=== PATIENT | female | born 1995 | race Caucasian/White ===

== ENCOUNTER 2021-09-22 17:21 | Emergency (ER) | payer SELFPAY ==
--- NOTE | 2021-09-22 18:11 | ED Lower Extremity ---
General Stated Complaint: KNEE PAIN Source: patient Exam Limitations: no limitations (JOAN HERRERA) History of Present Illness Date Seen by Provider: Sep 22, 2021 Time Seen by Provider: 18:09 Initial Comments Patient is a 26-year-old female presents ED with right knee pain. Knee pain started 2 weeks ago. She was putting on catcher gear on a kid. She felt a sharp pain in her knee. This occurred suddenly. She has been having popping sensation with her right knee since. She reports swelling of the right calf, thigh from this injury. She went to [facility] and was prescribed me loxicam and Voltaren without much improvement. She has been wearing a knee brace. She denies of any high impact injury of the knee. Pain with any movement or standing or walking. Denies fever, chills, chest pain, shortness of breath, control, recent travels or surgeries. Patient states she had a negative x-ray 2 weeks ago at [facility]. (JOAN HERRERA) Allergies and Home Medications Allergies Coded Allergies: No Known Drug Allergies (Unverified , 09/22/21) Patient Home Medication List Home Medication List Reviewed: Yes (JOAN HERRERA) Hydrocodone/Acetaminophen (Hydrocodone-Acetamin 5-325 mg) 5 Mg-325 Mg Tablet, 1 TAB PO Q4H PRN for PAIN-MODERATE (5-7) Prescribed by: AMY PIMENTEL on 09/22/211918 Review of Systems Constitutional: No chills, No diaphoresis, No fever, No malaise EENTM: No hearing loss, No blurred vision, No double vision Respiratory: No cough, No short of breath Cardiovascular: No chest pain Gastrointestinal: No abdominal pain, No diarrhea, No nausea, No vomiting Genitourinary: No decreased output, No discharge Musculoskeletal: joint pain, joint swelling, muscle pain Skin: No change in color (JOAN HERRERA) All Other Systems Reviewed Negative Unless Noted: Yes (JOAN HERRERA) Physical Exam Vital Signs Vital Signs - First Documented 09/22/21 17:58 Temp 36.1 Pulse 78 Resp 14 B/P (MAP) 138/82 (100) (JONN ARAUJO DO) Vital Signs Capillary Refill : (JOAN HERRERA) Height, Weight, BMI Height: '" Weight: lbs. oz. kg; BMI Method: General Appearance: WD/WN, no apparent distress HEENT: PERRL/EOMI, normal ENT inspection, TMs normal, pharynx normal Neck: non-tender, full range of motion, supple, normal inspection Cardiovascular: regular rate, rhythm, no edema, no gallop, no JVD Respiratory: chest non-tender, lungs clear, normal breath sounds, no respiratory distress, no accessory muscle use Gastrointestinal: normal bowel sounds, non tender, soft, no organomegaly Back: normal inspection, no CVA tenderness Knees: right knee pain, right knee soft tissue tenderness, right knee swelling Ankles: bilateral ankle non-tender, bilateral ankle normal inspection, bilateral ankle normal range of motion Feet: bilateral foot non-tender Neurologic/Psychiatric: inside upholsterer II-XII nml as tested, no motor/sensory deficits, normal mood/affect, oriented x 3 Skin: normal color (JOAN HERRERA) Progress/Results/Core Measures Results/Orders Lab Results Laboratory Tests Test 09/22/21 18:42 Range/Units D-Dimer <= 0.27 0.00-0.49 UG/ML (JONN ARAUJO DO) Medications Given in ED Current Medications Medications Dose Ordered Sig/Porter Route Start Time Stop Time Status Last Admin Dose Admin Acetaminophen/ Hydrocodone Bitart 1 ea ONCE ONCE PO 09/22/21 19:15 09/22/21 19:16 DC 09/22/21 19:20 1 EA (JONN ARAUJO DO) Vital Signs/I&O 09/22/21 09/22/21 17:58 19:26 Temp 36.1 36.1 Pulse 78 74 Resp 14 14 B/P (MAP) 138/82 (100) 132/78 (JONN ARAUJO DO) Departure Communication (PCP) Patient is a 26-year-old female presents ED with right knee pain. Injury 2 weeks ago when putting on catcher gear on a kid. Denies of any specific twist or turn that caused the injury. Immediate pain. She noted increased swelling over the past few days. Pain with walking standing twisting or turning. She reports popping sensation. Has been wearing the Lorenzo wrap. On exam no significant laxity. No pain with valgus or varus stress. Negative anterior posterior drawer test with severe pain or laxity. No popping or locking with Karena point tenderness. Discussed potential ligament versus meniscus injury. She does have a small joint effusion. She states she had a negative x-ray at [facility] and not wanting an x-ray at this time. She is requesting MRI which I discussed with patient this is typically performed outpatient [facility]. She needs a follow-up with orthopedic for further evaluation. Likely benefit with MRI versus physical therapy. She is currently on meloxicam. We will provide a few days worth of stronger pain medication as needed. Ice elevate Lorenzo wrap for support. Any worsening symptoms return back to ED for further evaluation. Continue with meloxicam. No other NSAIDs. No Tylenol with the NORCO (JAON HERRERA) Impression Primary Impression: Knee pain Disposition: HOME, SELF-CARE Condition: Stable Departure-Patient Inst. Decision time for Depature: 19:17 (JOAN HERRERA) Referrals: SEVERIANO GRECO MD Patient Instructions: Knee Pain ED Scripts Hydrocodone/Acetaminophen (Hydrocodone-Acetamin 5-325 mg) 5 Mg-325 Mg Tablet 1 TAB PO Q4H PRN for PAIN-MODERATE (5-7), #8 TAB Prov: JOAN HERRERA 09/22/21 ATTENDING PHYSICIAN NOTE: I WAS PHYSICALLY PRESENT ER PHYSICIAN, BUT I WAS NOT INVOLVED IN ANY DECISION MAKING OR ANY CARE OF PT. (JONN ARAUJO DO) JOAN HERRERA Sep 22, 2021 18:11 JONN ARAUJO DO Sep 23, 2021 01:14
[2021-09-22] MEDS ORDERED: HYDROcodone/APAP 5 MG/325 MG (LORTAB) TAB PO ONE (19:15)
[2021-09-22] MEDS ORDERED: ACHD5005 PO (19:19)
[2021-09-22 19:26] VITALS: BP 132/78
== END 2021-09-22 19:27 | disposition home or self-care (01) ==
LOC: ER 17:24
DX: M25.561 Pain in right knee (principal); M25.461 Effusion, right knee
CPT/HCPCS: 36415; 85379; 99283